=== PATIENT | female | born 1985 | race Caucasian/White ===

== ENCOUNTER → 2017-08-21 09:05 | Outpatient (CLI) | payer OTHER, SELFPAY ==
[2017-08-26 10:40] LABS: HPV Reflexed? NOT INDICATED
== END ==
PROVIDERS: Family Provider Family Medicine; PCP Family Medicine; Visit Provider Obstetrics & Gynecology
DX: Z12.4 Encounter for screening for malignant neoplasm of cervix (principal)
CPT/HCPCS: 88175; G0145

== ENCOUNTER → 2019-11-25 11:27 | Outpatient (CLI) | payer OTHER, SELFPAY ==
[2014-02-12 07:55] VITALS: BMI 33.7
[2019-11-29 01:14] LABS: HPV Reflexed? NOT INDICATED
== END ==
PROVIDERS: PCP Family Medicine; Visit Provider Obstetrics & Gynecology
DX: Z12.4 Encounter for screening for malignant neoplasm of cervix (principal)
CPT/HCPCS: 88175; G0145

== ENCOUNTER 2021-09-25 07:17 | Outpatient (CLI) | payer OTHER, SELFPAY ==
--- NOTE | 2021-09-25 07:20 | BI_ITS ---
MAMMOGRAPHY - BILATERAL SCREENING REASON FOR EXAM: Female, 36 years old. Routine annual screening examination. PERTINENT HISTORY: Mother with breast cancer. TECHNIQUE: Digital bilateral breast anne-marie (3D mammographic acquisition) in the CC and MLO projections. 2-D mediolateral oblique (MLO) and craniocaudad (CC) views of both breasts were obtained. CAD: Full Field Digital Mammography with Computer Added Detection was performed. COMPARISON: None. Baseline examination. FINDINGS: Breast Composition: The breasts are almost entirely fatty. There are no dominant masses or suspicious calcifications. There is a 4.3 mm x 6 mm well-defined nodule in the upper lateral aspect of the right breast. This may represent a small cyst. Correlation with ultrasound is recommended. No other significant abnormalities are identified. BI/SCRN MAMM (CAD)W/ANNE-MARIE BILAT IMPRESSION: 4.3 mm x 6 mm well-defined nodule in the upper lateral aspect of the right breast as described. Correlation with ultrasound is recommended. ASSESSMENT CATEGORY: BIRADS Category 0: Incomplete. Need additional imaging evaluation. A letter regarding these results will be sent to the patient by the facility within 30 days. Approximately 10% of breast cancers are not detected by mammography. A normal mammogram should not delay biopsy of a clinically suspicious abnormality. [id number] Electronically Signed: Ventura Escobar MD at 9:02 EDT ,
== END 2021-09-25 23:59 | disposition home or self-care (01) ==
LOC: OPBI 07:18
PROVIDERS: PCP Family Medicine; Referring Provider Obstetrics & Gynecology; Visit Provider Obstetrics & Gynecology
DX: Z12.31 Encounter for screening mammogram for malignant neoplasm of breast (principal)
CPT/HCPCS: 77063; 77067

== ENCOUNTER 2021-09-26 07:50 | Outpatient (CLI) | payer OTHER, SELFPAY ==
--- NOTE | 2021-09-26 07:53 | US_ITS ---
STUDY: ULTRASOUND BREAST - RIGHT REASON FOR EXAM: Female, 36 years old. Abnormal screening mammogram. TECHNIQUE: Axial and longitudinal images of the RIGHT breast were performed with a high resolution ultrasound transducer. # OF IMAGES: 22 COMPARISON: Comparison is made with prior mammogram dated 09/25/2021. FINDINGS: RIGHT Breast: The upper outer quadrant of the breast was examined by ultrasound. The mammographic abnormality corresponds to an 8 mm x 5 mm x 6 mm benign-appearing lymph node. US/Breast Limited Unilateral IMPRESSION: 8 mm x 5 mm x 6 mm benign-appearing lymph node corresponding to the mammographic abnormalities. ASSESSMENT CATEGORY: BIRADS Category 2: Benign. A letter regarding these results will be sent to the patient by the facility within 30 days. Electronically Signed: Ventura Escobar MD at 9:55 EDT ,
== END 2021-09-26 23:59 | disposition home or self-care (01) ==
LOC: OPUS 07:50
PROVIDERS: PCP Family Medicine; Visit Provider Obstetrics & Gynecology
DX: N63.10 Unspecified lump in the right breast, unspecified quadrant (principal)
CPT/HCPCS: 76642

== ENCOUNTER → 2022-01-02 | Outpatient (CLI) | payer OTHER, SELFPAY ==
[2022-01-06 15:39] LABS: HPV Reflexed? NOT INDICATED
== END | disposition home or self-care (01) ==
LOC: LABSPEC 14:30
PROVIDERS: PCP Family Medicine; Visit Provider Obstetrics & Gynecology
DX: Z12.4 Encounter for screening for malignant neoplasm of cervix (principal)
CPT/HCPCS: 88175; G0145